=== PATIENT | male | born 1980 | race Caucasian/White ===

== ENCOUNTER → 2016-11-27 | Outpatient (CLI) | payer OTHER | LOC: COL.VAS 08:00 | DX: I51.7 Cardiomegaly (principal); I45.19 Other right bundle-branch block ==

== ENCOUNTER → 2017-05-26 | Outpatient (REF) | LOC: WSOH 17:15 | DX: Z02.89 Encounter for other administrative examinations (principal) ==

== ENCOUNTER 2018-11-26 06:55 | Day surgery (SDC) | payer OTHER ==
[~2018-11-26] VITALS: Ht 177.8 cm; Wt 78.2 kg
[2018-11-26] VITALS (8 sets, daily range): BP systolic 100–130; BP diastolic 66–94; PULSE 67–91; TEMP 97.1–98
--- NOTE | 2018-11-26 08:30 | NUR ---
Pt returns from endo procedure. Pt ambulates from cart to recliner with RN assist x 2. Monitors on and alarms set. Call light within reach. Report received from VIVEK Alba. Pt feels slight abdominal pain and slight nausea. No other complaints voiced by patient. Pt requests muffin and and water. Pt drowsy but answers all questions appropriately.
--- NOTE | 2018-11-26 08:45 | NUR ---
Pt remains having mild nausea. Pt remains drowsy but answers all questions appropriately. Pt taking food and drink well.
--- NOTE | 2018-11-26 08:50 | NUR ---
Pt ambulates to bathroom with RN assist and passes gas and stool.
--- NOTE | 2018-11-26 09:00 | NUR ---
Pt remains mildly nauseated and expresses relief after using restroom. present in room.
--- NOTE | 2018-11-26 09:05 | NUR ---
Pt ambulates to bathroom again with RN assist and vomits "twice" and passes more gas.
--- NOTE | 2018-11-26 09:15 | NUR ---
Pt states he continues to feel better after passing more gas. Pt has no other complaints.
--- NOTE | 2018-11-26 09:18 | NUR ---
Pt ambulates to bathroom again and passes more gas with much stated relief.
--- NOTE | 2018-11-26 09:55 | NUR ---
Dr. Viramontes visiting with patient and . Discharge instructions given to patient and . All questions answered to their satisfaction. Handed to them are the instructions and a thank you card.
--- NOTE | 2018-11-26 10:10 | NUR ---
Pt ambulated with RN assist out of hospital to private vehicle driven by .
== END 2018-11-26 10:10 | disposition home or self-care (01) ==
LOC: SDCO 06:55
DX: D12.0 Benign neoplasm of cecum (principal); K64.1 Second degree hemorrhoids; Z80.0 Family history of malignant neoplasm of digestive organs; K92.1 Melena; Z83.71 Family history of colonic polyps; K62.89 Other specified diseases of anus and rectum
CPT/HCPCS: J2250; J2405; J3010; J7030

== ENCOUNTER 2021-07-14 11:34 | Emergency (ER) | payer OTHER ==
[~2021-07-14] VITALS: Ht 177.8 cm; Wt 79.5 kg
[2021-07-14 11:43] VITALS: TEMP 98.6
[2021-07-14 12:14] LABS: BASO % 0.6 % (0.0-2.0); EOS # 0.1 K/mm3 (0.0-0.7); EOS % 3.1 % (0-4.0); GRAN # 1.7 K/mm3 (1.4-6.5); GRAN % 51.8 % (42.2-75.2); HEMATOCRIT 42.1 % (42.0-52.0); HEMOGLOBIN 14.6 g/dl (13.5-18.0); LYMPH % 29.9 % (20.0-51.0); MEAN CELL VOLUME 89 fl (80.0-100.0); MEAN CORPUSCULAR HEMOGLOBIN 31 pg (27.0-31.0); MEAN CORPUSCULAR HGB CONC 35 g/dl (33.0-37.0); MEAN PLATELET VOLUME 9.5 fl (7.4-10.4); MONO # 0.5 K/mm3 (0.1-0.6); MONO % 14.3 % (1.7-9.3); PLATELET COUNT 188 K/mm3 (130-400); RED BLOOD COUNT 4.73 M/mm3 (4.20-5.60)
[2021-07-14 12:34] LABS: ALBUMIN 3.9 gm/dL (3.5-5.0); C-REACTIVE PROTEIN 1.4 mg/dL (0.00-0.50); CREATININE, serum 1.11 mg/dL (0.72-1.25); POTASSIUM 3.9 mmol/L (3.5-4.5)
[2021-07-14 13:27] VITALS: BP 127/90; PULSE 68
== END 2021-07-14 13:35 | disposition home or self-care (01) ==
LOC: COL.ER 11:34
PROVIDERS: Family Medicine
DX: R06.02 Shortness of breath (principal)

== ENCOUNTER 2024-06-24 12:32 | Day surgery (SDC) | payer BC ==
[~2024-06-24] VITALS: Ht 177.8 cm; Wt 79.1 kg
[~2024-06-24 12:32] MED LIST: LR 1,000 ML IV SCH; Ondansetron 4 MG/2 ML VIAL IV PRN
[2024-06-24 13:35] VITALS: BP 123/97; PULSE 85; TEMP 98
[2024-06-24] MEDS ORDERED: MULTIPLE VITAMI1 TA1 PO (13:47)
[2024-06-24] MEDS ORDERED: CONCERTA18 MG PO (13:47)
[2024-06-24] MEDS ORDERED: OMEGA-3 1000 MG1 CAP PO (13:49)
[2024-06-24 15:15] VITALS: BP 115/94; PULSE 85; TEMP 97.4
--- NOTE | 2024-06-24 15:15 | NUR ---
PATIENT AMBULATED TO CHAIR WITH STEADY GAIT, ASSIST OF 2. ALERT AND AWAKE. DENIES PAIN, NAUSEA AND SHORTNESS OF BREATH. BREATHING REGULAR AND UNLABORED ON ROOM AIR. SKIN WARM AND DRY. IV IN PLACE. NURSE HANDOFF COMPLETED IN ROOM. SEE CHART FOR VITAL SIGNS. PATIENT HAD A MUFFIN, CHEESE, PUDDING AND JUICE. FOOD/DRINK TOLERATED WELL. CALL LIGHT IN REACH.
[2024-06-24 15:30] VITALS: BP 114/86; PULSE 88
[2024-06-24 15:41] VITALS: BP 119/88; PULSE 86
--- NOTE | 2024-06-24 15:51 | NUR ---
1546: DISCHARGE TEACHING COMPLETED WITH PRINTED EDUCATION AND INSTRUCTIONS SENT HOME WITH PATIENT. PATIENT VERBALIZED UNDERSTANDING OF TEACHING. MET WITH PATIENT IN ROOM TO DISCUSS PROCEDURE. 1547: IV REMOVED. GAUZE AND COBAN PLACED OVER SITE. 1551: PATIENT DISCHARGED HOME WITH FRIEND TRANSPORT.
== END 2024-06-24 15:51 | disposition home or self-care (01) ==
LOC: SDCO 12:32
DX: Z12.11 Encounter for screening for malignant neoplasm of colon (principal); D12.0 Benign neoplasm of cecum; Z80.0 Family history of malignant neoplasm of digestive organs
CPT/HCPCS: J2704; J7120